=== PATIENT | female | born 1980 | race African-American/Black ===

== ENCOUNTER 2018-07-13 03:21 | Emergency (ER) | payer OTHER ==
[~2018-07-13] VITALS: Ht 167.6 cm; Wt 81.9 kg
[2018-07-13 03:25] VITALS: Ht 167.6 cm; Wt 81.9 kg
[2018-07-13] MEDS ORDERED: ACETAMINOPHEN 500 MG TAB PO STA (03:47)
[2018-07-13] MEDS ORDERED: ONDANSETRON (ODT) 4 MG TAB ODT STA (03:47)
[2018-07-13 06:10] VITALS: BP 106/63; PULSE 77; RESP 18
[2018-07-13] MEDS ORDERED: ONDA4TAB14 PO (06:11)
[2018-07-13] MEDS ORDERED: ACET325T45 PO (06:11)
--- NOTE | 2018-07-13 06:23 | ERD ---
ER Documentation Chief Complaint Chief Complaint abdominal pain/nausea/headache x 3 days. 18 weeks . denies vb HPI 38-year-old female currently 18 weeks presents for headache times 3 days. Patient also has lower pelvic pain. Headache noted to be 8 out of 10, diffuse, described as sharp. She has light sensitivity and noise sensitivity. The pelvic pain is noted to be 3 out of 10. Patient has been seen at different ERs for the same symptoms. She states that she had a ultrasound done and was told she had placenta previa. She is also told that she had blood in her urine. She does have an OB appointment today. She has nausea but no vomiting. She also states that she is currently on Flagyl for bacterial vaginosis from the ER about 2 weeks ago. Denies chest pain or shortness of breath. Denies fevers or chills. Patient states that she has had prior similar headaches in the past. ROS All systems reviewed and are negative except as per history of present illness. Medications Home Meds Active Scripts Ondansetron (Ondansetron Odt) 4 Mg Tab.rapdis, 4 MG PO Q6H PRN for NAUSEA AND/OR VOMITING, #15 TAB Prov:SAMRA MARTINEZ DO 07/13/18 Acetaminophen* (Acetaminophen*) 325 Mg Tablet, 650 MG PO Q4H PRN for PAIN AND OR ELEVATED TEMP, #30 TAB Prov:SAMRA MARTINEZ DO 07/13/18 Allergies Allergies: Coded Allergies: No Known Drug Allergies (Verified Allergy, Unknown, 07/13/18) PMhx/Soc Hx Neurological Disorder: Yes (migraine) Hx Miscellaneous Medical Probl: Yes (placenta previa) Hx Alcohol Use: No Hx Substance Use: No Hx Tobacco Use: No Smoking Status: Never smoker Physical Exam Vitals Vital Signs Date Temp Pulse Resp B/P (MAP) Pulse Ox O2 O2 Flow FiO2 Time Delivery Rate 07/13/18 98.0 77 18 106/63 97 Room Air 06:10 (77) 07/13/18 98.0 97 18 123/76 98 03:25 (92) Physical Exam Const: No acute distress Head: Atraumatic, no temporal area tenderness to palpation Eyes: Normal Conjunctiva, pupils equal, round, reactive to light bilaterally ENT: Normal External Ears, bilateral tympanic membrane intact without erythema or bulging noted, Nose and Mouth examination normal. No tonsillar swelling or exudate noted Neck: Full range of motion. No meningismus, no bruits noted Resp: Clear to auscultation bilaterally Cardio: Regular rate and rhythm, no murmurs, bilateral radial and dorsalis pedis pulses intact Abd: Soft, non distended. Normal bowel sounds, no McBurney's point tenderness, no Howard sign, no rebound or guarding noted Skin: No petechiae or rashes Ext: No cyanosis, or edema, 5 out of 5 muscular bilateral upper and lower extremities Neur: Awake and alert, bilateral upper and lower extremity sensation intact Psych: Normal Mood and Affect Result Diagram: 07/13/18 0403 Results 24 hrs Laboratory Tests Test 07/13/18 04:03 White Blood Count 9.4 10^3/ul Red Blood Count 3.89 10^6/ul Hemoglobin 11.3 g/dl Hematocrit 34.3 % Mean Corpuscular Volume 88.2 fl Mean Corpuscular Hemoglobin 29.0 pg Mean Corpuscular Hemoglobin Concent 32.9 g/dl Red Cell Distribution Width 12.3 % Platelet Count 252 10^3/UL Mean Platelet Volume 10.0 fl Immature Granulocytes % 1.100 % Neutrophils % 70.9 % Lymphocytes % 19.4 % Monocytes % 6.6 % Eosinophils % 1.5 % Basophils % 0.5 % Nucleated Red Blood Cells % 0.0 /100WBC Immature Granulocytes # 0.100 10^3/ul Neutrophils # 6.6 10^3/ul Lymphocytes # 1.8 10^3/ul Monocytes # 0.6 10^3/ul Eosinophils # 0.1 10^3/ul Basophils # 0.1 10^3/ul Nucleated Red Blood Cells # 0.0 10^3/ul Urine Color YELLOW Urine Clarity SLIGHTLY CLOUDY Urine pH 5.0 Urine Specific [place] 1.020 Urine Ketones NEGATIVE mg/dL Urine Nitrite NEGATIVE mg/dL Urine Bilirubin NEGATIVE mg/dL Urine Urobilinogen NEGATIVE mg/dL Urine Leukocyte Esterase TRACE Ry/ul Urine Microscopic RBC 11 /HPF Urine Microscopic WBC 3 /HPF Urine Squamous Epithelial Cells FEW /HPF Urine Mucus FEW /HPF Urine Hemoglobin 2+ mg/dL Urine Glucose NEGATIVE mg/dL Urine Total Protein NEGATIVE mg/dl Current Medications Medications Dose Sig/Horacio Start Time Status Last (Trade) Ordered Route PRN Stop Time Admin Dose Reason Admin Ondansetron 4 mg ONCE STAT 07/13/18 DC 07/13/18 HCl (Zofran ODT 03:47 04:00 Odt) 07/13/18 03:49 500 mg ONCE STAT 07/13/18 DC 07/13/18 Acetaminophen PO 03:47 04:01 (Tylenol 07/13/18 03:49 Tab) 325 mg ONCE ONCE 07/13/18 Acetaminophen PO 06:30 (Tylenol 07/13/18 06:31 Tab) Procedures/MDM Medical Decision Making: Differential diagnosis includes but not limited to primary headache, subarachnoid hemorrhage, meningitis, temporal arteritis, glaucoma, hypertension, cerebral ischemia, carotid or vertebral arterial dissection, brain tumor. Patient appeared well on physical examination, nontoxic appearing. No history of fever. There is low suspicion for meningitis. Given no temporal area tenderness to palpation, low suspicion for temporal arteritis. Patient has no vision changes and pupils are reactive bilaterally, low suspicion for glaucoma. There is also no focal neurologic deficits to suggest a brain tumor. Patient has normal sensation and muscle strength, low suspicion for cerebral ischemia. Given headache is similar to prior headaches, patient possibly has a primary headache. Given that patient is currently about 18 weeks there is a possibility the patient has preeclampsia. Her blood pressure is normal and there is no protein in the urine. No leg swelling noted on physical exam. Therefore low suspicion for preeclampsia. In the ER patient given Zofran and Tylenol Symptoms improved with treatment. CBC: no e/o of systemic infection or severe anemia Urine: no e/o acute infection, there was RBCs noted in the urine. OB ultrasound showed single live uterine with heart tones noted to be 159. Estimated gestational age about 17 weeks. Patient given prescription for supportive medication(s). Patient advised to follow-up with B[facility] OPER[facility], patient does have an appointment today and was advised to keep the appointment Patient advised to follow up with PCP in 1-2 days. Patient advised to return to ED for new or worsening symptoms. Patient stable on discharge from the ED. Disclaimer: Inadvertent spelling and grammatical errors are likely due to EHR/dictation software use and do not reflect on the overall quality of patient care. Also, please note that the electronic time recorded on this note does not necessarily reflect the actual time of the patient encounter. Departure Diagnosis: Primary Impression: Headache Headache type: unspecified Headache chronicity pattern: unspecified pattern Intractability: not intractable Qualified Codes: R51 - Headache Condition: Fair Patient Instructions: Self-Care for Headaches Referrals: [facility] YOU HAVE RECEIVED A MEDICAL SCREENING EXAM AND THE RESULTS INDICATE THAT YOU DO NOT HAVE A CONDITION THAT REQUIRES URGENT TREATMENT IN THE EMERGENCY DEPARTMENT. FURTHER EVALUATION AND TREATMENT OF YOUR CONDITION CAN WAIT UNTIL YOU ARE SEEN IN YOUR DOCTORS OFFICE WITHIN THE NEXT 1-2 DAYS. IT IS YOUR RESPONSIBILITY TO MAKE AN APPOINTMENT FOR FOLOW-UP CARE. IF YOU HAVE A PRIMARY DOCTOR --you should call your primary doctor and schedule an appointment IF YOU DO NOT HAVE A PRIMARY DOCTOR YOU CAN CALL OUR PHYSICIAN REFERRAL HOTLINE AT IF YOU CAN NOT AFFORD TO SEE A PHYSICIAN YOU CAN CHOSE FROM THE FOLLOWING [facility] [address] [facility]. [facility] [address] [facility]. [facility] [address] [facility] [facility] [address] [facility] [facility] [address] [facility]. [facility] [address] Additional Instructions: Call your primary care doctor TOMORROW for an appointment during the next 1-2 d ays.See the doctor sooner or return here if your condition worsens before your appointment time. Follow up with BOXER OPERATOR SAMRA MARTINEZ DO Jul 13, 2018 06:23
[2018-07-13] MEDS ORDERED: ACETAMINOPHEN 325 MG TAB PO ONE (06:30)
== END 2018-07-13 06:20 | disposition home or self-care (01) ==
LOC: FTE 03:21
DX: O26.892 Other specified pregnancy related conditions, second trimester (principal); R51 Headache; Z3A.18 18 weeks gestation of pregnancy
CPT/HCPCS: 36415; 76805; 81001; 85025; Z7502; Z7610